=== PATIENT | female | born 1945 | race Caucasian/White ===

== ENCOUNTER → 2017-02-01 | Outpatient (CLI) | payer MEDICARE ==
[~2017-02-01] MED LIST: ASPIRIN 325MG325 MG PO; ASPIRIN 81MG TA81 MG PO; ATENOLOL50 MG PO; BISOPROLOL 5MG T5 MG PO; HYDROCODONE-APA1 TA1 PO; NICOTINE 7 MG TD; PHENERGAN VC +120 ML PO; SIMVASTATIN80 MG PO; VITAMIN D50000 I1 PO; ZOCOR80 MG PO
--- NOTE | 2017-02-01 17:10 | CARDIOVASCULAR REPORT ---
"Venous Exam Indications: 729.5 Pain in limb. 782.3 Edema. IMPRESSIONS No evidence of deep or superficial vein thrombosis involving the left lower extremity History: Left lower extremity pain. Risk factors: Hypertension. Pain in left knee. Denies trauma. Medications: Aspirin, 81 mg. Left lower extremity venous duplex evaluation. Doppler flow study including spectral analysis, color and bazan scale imaging. Location: Vascular laboratory. Patient status: Outpatient. Tables: Venous flow and imaging: + +-------+ + |Location |Overall|Flow properties | + +-------+ + |Left common femoral |Patent |Normal phasicity; spontaneous; | | | |normal augmentation; compressible | + +-------+ + |Left saphenofemoral junction|Patent |Compressible | + +-------+ + |Left profunda femoral |Patent |Compressible | + +-------+ + |Left femoral |Patent |Normal phasicity; spontaneous; | | | |normal augmentation; compressible | + +-------+ + |Left greater saphenous |Patent |Normal phasicity; spontaneous; | | | |normal augmentation; compressible | + +-------+ + |Left popliteal |Patent |Normal phasicity; spontaneous; | | | |normal augmentation; compressible | + +-------+ + |Left posterior tibial |Patent |Compressible | + +-------+ + |Left peroneal |Patent |Compressible | + +-------+ + |Left gastrocnemius |Patent |Compressible | + +-------+ + |Left soleal |Patent |Compressible | + +-------+ + (Report amended ) Electronically signed by: Shantanu Turner [id number]"
--- NOTE | 2017-02-01 17:54 | RADIOLOGY REPORT PS360 ---
KNEE-3 VIEWS-LT HISTORY: Left knee pain and swelling SWELLING OF LEFT KNEE JOINT ORDERING PHYSICIAN: Karly PATIÑO PATIENT AGE: 71 years COMPARISON: None FINDINGS: There is decrease in the joint space medially with osteophyte formation along the medial compartment and mild osteosclerosis consistent with mild osteoarthritis. Minimal spurring is present at the superior patella. Increased soft tissue density is present superior to the patella consistent with a knee joint effusion. There is some vascular calcification noted. No fracture or dislocation. No lytic or blastic change. IMPRESSION: Mild osteoarthritic changes with knee joint effusion
== END ==
LOC: RT 15:58
DX: M25.462 Effusion, left knee (principal); M79.605 Pain in left leg

== ENCOUNTER → 2017-06-13 | Outpatient (CLI) | payer MEDICARE ==
--- NOTE | 2017-06-13 20:17 | RADIOLOGY REPORT PS360 ---
CHEST(2 VIEWS-NOT PORTABLE) Ordering Physician: Karly PATIÑO Patient Age: 71 years: Female HISTORY: PNEUMONIA OF RT LOWER LOBE TECHNIQUE: PA and lateral chest COMPARISON :2009 Tomás and lateral chest as well as a AP supine chest July 2014 FINDINGS There is a focus of additional density seen projected over the left cardiac apex at left lung base. This likely resides within the lingula & could reflect a small lingular infiltrate but cannot exclude a small lung density here. This is a change since both previous studies Right lung. Upper normal markings at the medial right base. No convincing infiltrate on right. Mild hyperexpansion noting increased AP diameter and slight flattening of diaphragm. The heart is normal in size. Short Coronary artery stent noted unchanged since 2014. Priscilla and mediastinal structures unchanged.. Degenerative disc changes at the lower T-spine and progressed since 2009 no compression fractures or chest wall or rib lesions. IMPRESSION: --------- Left chest: Minimal Patchy lingular infiltrate or density, left lung base . Change since prior study . Right lung: upper normal markings at the medial right lung base. Unimpressive No definitive pneumonia on right
== END ==
LOC: RAD 11:33
DX: J18.1 Lobar pneumonia, unspecified organism (principal)